=== PATIENT | female | born 1975 | race Two or more races ===

== ENCOUNTER 2019-10-03 13:02 | Outpatient (CLI) | payer OTHER | END 2019-10-03 13:16 | disposition home or self-care (01) | LOC: MAMO-SONO 13:02 | DX: Z12.31 Encounter for screening mammogram for malignant neoplasm of breast (principal); N92.0 Excessive and frequent menstruation with regular cycle; D51.1 Vitamin B12 deficiency anemia due to selective vitamin B12 malabsorption with proteinuria; N60.11 Diffuse cystic mastopathy of right breast; N60.12 Diffuse cystic mastopathy of left breast ==

== ENCOUNTER 2025-04-13 06:00 | Day surgery (SDC) | payer OTHER ==
[2025-04-11 09:48] LABS: BASO % 0.7 % (0.1-1.2); EOS # 0.13 (0.04-0.54); EOS % 2.2 % (0.7-7.0); LYMPH # 1.45 (1.18-3.74); LYMPH % 24.8 % (19.3-53.1); MEAN PLATELET VOLUME 9.70 fl (9.4-12.4); MONO # 0.55 (0.24-0.82); MONO % 9.4 % (4.7-12.5); NEUT # 3.67 (1.56-6.13); NEUT % 62.7 % (34.0-71.1); RED CELL DISTRIBUTION WIDTH 12.4 % (11.6-14.4); URINE APPEARANCE Clear; URINE BILIRRUBIN Negative (NEGATIVE); URINE BLOOD Moderate; URINE COLOR Yellow; URINE GLUCOSE Negative (NEGATIVE); URINE KETONE Negative (NEGATIVE); URINE LEUKOCYTE Negative; URINE NITRATE Negative; URINE PROTEIN 30 (NEGATIVE); URINE UROBILINOGEN 0.2 E.U./dl
[2025-04-11 09:57] LABS: COVID-19 AG NEGATIVE (NEGATIVE)
[2025-04-11 10:03] LABS: URINE BACTERIA SOME; URINE EPITHELIAL CELLS 0-4 /HPF; URINE RBC 13-18 /HPF; URINE WBC 0-2 /hpf
[2025-04-11 10:16] LABS: INR 0.95
[2025-04-11 10:46] LABS: ALT/SGPT 19.0 U/L (12-78); AST/SGOT 11.0 U/L (15-37); BILIRUBIN TOTAL 0.43 mg/dL (0.3-1.2); BUN CREA RATIO 18.0 (7.0-25.0); CREATININE SERUM 0.84 mg/dL (0.55-1.02); GFR 72.06; GLOBULINA 4.1 G/DL (2.4-3.5); GLUCOSE FASTING 94.0 mg/dL (65-100); OSMOLALITY SERUM 287.0 MOSM/KG (275-295)
[2025-04-11 10:54] VITALS: BP 112/75
[~2025-04-13] VITALS: Ht 170.2 cm; Wt 73.5 kg
[~2025-04-13 06:00] MED LIST: LOSARTAN-HCTZ1 EAC2 PO; NORVASC2.5 M1 PO; SYNTHROID75 MCG PO; TAMOXIFEN CITRA20 MG PO; VYTORIN 10-201 EACH PO
[2025-04-13] MEDS ORDERED: CEFAZOLIN SODIUM 1,000 MG VIAL ONE (13:38)
== END 2025-04-13 21:15 | disposition home or self-care (01) ==
LOC: CIR.AMB 06:00
PROVIDERS: ATTEND Surgery
DX: C50.411 Malignant neoplasm of upper-outer quadrant of right female breast (principal); D48.7 Neoplasm of uncertain behavior of other specified sites